=== PATIENT | female | born 1995 | race Caucasian/White ===

== ENCOUNTER → 2016-09-10 | Outpatient (CLI) | payer MEDICAID, BC | LOC: LAB.O 11:10 | PROVIDERS: ATTEND Obstetrics & Gynecology | DX: N91.1 Secondary amenorrhea (principal) ==

== ENCOUNTER 2017-04-13 15:17 | Emergency (ER) | payer OTHER ==
[2017-04-13 15:36] VITALS: BP 138/91; TEMP 100.3; O2SAT 98
--- NOTE | 2017-04-13 16:01 | ED.PDOC ---
History of Present Illness - General Chief Complaint: Fever Stated Complaint: Fever, back pain Time Seen by Provider: 04/13/17 15:26 Source: patient, RN notes reviewed, Vital Signs reviewed, family, RN/MD Exam Limitations: no limitations - History of Present Illness Initial Comments: Patient is 5 days post- and it having back pain at the site of her epidural with a fever to 101.5. She saw the Anesthesiologist 2 days ago who felt since she was neurologically intact that she was fine. Pain in her back is a constant, dull achy pain that is now shooting up her spine. She has also developed a frontal [place] around her eyes. Denies urinary symptoms. No unexpected or foul smelling vaginal discharge. No abdominal pain. She has been taking Ibuprofen 800mg TID. Timing/Duration: constant - for 5 days Fever Severity/Quality: greater than 100.5 F Fever Therapy AUTO DAMAGE APPRAISER: Ibuprofen Associated Symptoms: headache Review of Systems - Review of Systems Constitutional: States: chills, fever EENTM: States: no symptoms reported Respiratory: States: no symptoms reported Cardiology: States: no symptoms reported Gastrointestinal/Abdominal: States: no symptoms reported. Denies: abdominal pain Genitourinary: States: no symptoms reported. Denies: discharge, dysuria, pain Musculoskeletal: States: see HPI, back pain Skin: States: no symptoms reported Neurological: States: headache. Denies: numbness, paresthesia, tingling, weakness All other Systems: No Change from Baseline Past Medical History (General) - Patient Medical History Hx Seizures: No Hx Stroke: No Hx Dementia: No Hx Asthma: No Hx of COPD: No Hx Cardiac Disorders: No Hx Congestive Heart Failure: No Hx Pacemaker: No Hx Hypertension: No Hx Thyroid Disease: No Hx Diabetes: No Hx Gastroesophageal Reflux: No Hx Renal Disease: No Hx Cancer: No Hx of HIV: No Hx Hepatitis C: No Hx MRSA: No Surgical History: other - Vaccination History Hx Tetanus, Diphtheria Vaccination: Yes - 2017 Hx Influenza Vaccination: Yes - 2016 Hx Pneumococcal Vaccination: No - Social History Hx Tobacco Use: No Hx Chewing Tobacco Use: No Hx Alcohol Use: Yes Hx Substance Use: No Hx Substance Use Treatment: No Hx Depression: No Hx Physical Abuse: No Hx Emotional Abuse: No Hx Suspected Abuse: No - Female History Patient is a Female of Child Bearing Age (10 -59 yrs old): Yes Hx Last Menstrual Period: 10/26/15 Patient : No - Triage Comment ED Triage Comment: Pt had twins 5 days ago. Family Medical History - Family History Mother Family History: No Known Living Status: Still Living Physical Exam - Physical Exam General Appearance: Alert, No apparent distress, Well Developed, Well Groomed, Well Hydrated, Well Nourished, Other - Uncomforable Eye Exam: bilateral normal Neck: non-tender, full range of motion, supple, normal inspection Respiratory: chest non-tender, lungs clear, normal breath sounds, no respiratory distress, no accessory muscle use Cardiovascular/Chest: regular rate, rhythm, no gallop, no murmur Gastrointestinal/Abdominal: non tender, soft Extremity: normal range of motion, non-tender, normal inspection Neurologic: no motor/sensory deficits, alert, normal mood/affect, oriented x 3 Skin Exam: normal color, warm/dry Comments: Back: tender over lumbar spine and paraspinous muscles. No CVA tenderness. No erythema or bruising. Vital Signs 04/13/17 15:33 Temperature 100.3 F H Pulse Rate [ 99 H Left Radial] Respiratory 18 Rate Blood Pressure 138/91 [Left Arm] O2 Sat by Pulse 98 Oximetry Progress - Progress Progress: 04/13/17 16:42 Discussed results with patient and mother. Reviewed case with PCP - Dr. Jennifer Villanueva. Agree with plan for antibiotics while awaiting urine culture. - Results/Orders Results/Orders: Laboratory Tests 04/13/17 04/13/17 04/13/17 15:47 16:05 16:05 WBC 12.0 H RBC 4.98 Hgb 11.5 L Hct 36.6 MCV 73.5 L MCH 23.0 L MCHC 31.5 L RDW 27.4 H Plt Count 144 MPV 8.9 Absolute Neuts (auto) 9.60 H Absolute Lymphs (auto) 1.40 Absolute Monos (auto) 0.90 H Absolute Eos (auto) 0.10 Absolute Basos (auto) 0.00 Neutrophils % 80.3 H Lymphocytes % 11.7 L Monocytes % 7.3 Eosinophils % 0.5 L Basophils % 0.2 Sodium 140 Potassium 3.8 Chloride 107 Carbon Dioxide 20 L Anion Gap 16.8 BUN 10 Creatinine 0.76 BUN/Creatinine Ratio 13.2 Random Glucose 92 Serum Osmolality 278.1 Calcium 9.1 Total Bilirubin 0.4 AST 22 ALT 25 Alkaline Phosphatase 131 H Serum Total Protein 7.2 Albumin 3.1 L Globulin 4.1 H Albumin/Globulin Ratio 0.8 L Urine Color Yellow Urine Appearance Cloudy Urine pH 6.5 Ur Specific [place] 1.020 Urine Protein 30 Urine Glucose (UA) Negative Urine Ketones Negative Urine Blood Large H Urine Nitrite Negative Urine Bilirubin Negative Urine Urobilinogen 0.2 Ur Leukocyte Esterase Large H Urine RBC 10-20 H Urine WBC 20-30 H Ur Epithelial Cells 5-10 Urine Bacteria 3+ H Urine Mucus Large Departure - Departure Clinical Impression: Urinary tract infection affecting care of mother, antepartum, Spasm of back muscles Low back pain Qualifiers: Chronicity: acute Back pain laterality: bilateral Sciatica presence: without sciatica Qualified Code(s): M54.5 - Low back pain Time of Disposition: 16:40 Disposition: Discharge to Home or Self Care Condition: Good Departure Forms: ED Discharge - Pt. Copy, Patient Portal Self Enrollment Instructions: DI for Urinary Tract Infection (UTI), DI for Low Back Pain Diet: resume usual diet Activity: ambulate only with walker Referrals: Ed Villanueva MD [Primary Care Provider] - 1-5 Days Prescriptions: Sulfa/Trimeth 800/160 (Ds) Tab [Bactrim DS Tab] 1 ea PO BID #14 tab Home Medications: Ambulatory Orders Promethazine HCl 25 mg PO Q6H PRN #20 tab 06/14/16 busPIRone HCL [Buspar] 10 mg PO Q6HRS 06/14/16 Sulfa/Trimeth 800/160 (Ds) Tab [Bactrim DS Tab] 1 ea PO BID #14 tab 04/13/17
== END 2017-04-13 16:45 | disposition home or self-care (01) ==
LOC: ER 15:17
DX: N39.0 Urinary tract infection, site not specified (principal); M54.5 Low back pain; M62.830 Muscle spasm of back

== ENCOUNTER → 2017-04-18 | Outpatient (CLI) | payer OTHER | END | disposition home or self-care (01) | LOC: GMAM 10:41 | PROVIDERS: ATTEND Family Medicine | DX: N39.0 Urinary tract infection, site not specified (principal) ==

== ENCOUNTER → 2019-06-25 | Outpatient (CLI) | payer OTHER ==
--- NOTE | 2019-06-25 14:38 | US ---
EXAM DESCRIPTION: Soft Tissue,Abdomen: ULTRASOUND. CLINICAL HISTORY: PERIUMBILIC ABDOMINAL TENDERNESS COMPARISON: Abdominal radiographs 14 June 2016. TECHNIQUE: Transcutaneous scanning: [place]-scale and Doppler modes. FINDINGS: Scanning of the abdominal wall and adipose tissue superior to the umbilicus. Soft tissue mass is seen superior to the air shadow within the umbilicus. This mass measures 1.1 x 1.3 x 0.6 cm and is not vascular. No bowel peristalsis and no fluid collection or distinct cyst. No change with Valsalva maneuver. IMPRESSION: Fixed supraumbilical hernia measuring 1.3 cm, not containing bowel or fluid. Electronically signed by: Edgar Warner MD 06/25/2019 2:36 PM CDT
== END ==
LOC: US 09:19
PROVIDERS: ATTEND Family Medicine
DX: K42.9 Umbilical hernia without obstruction or gangrene (principal)